=== PATIENT | female | born 1995 | race Asian ===

== ENCOUNTER 2023-07-09 23:21 | Emergency (ER) | payer BC, OTHER, SELFPAY ==
[2023-07-09 23:29] VITALS: BP 154/112
[2023-07-09 23:41] VITALS: BP 160/93
[2023-07-09] MEDS: DUONEB 3 ML INH (23:41)
[2023-07-09 23:49] VITALS: BMI 28.6
--- NOTE | 2023-07-09 23:59 | ED.GENMED ---
History of Present Illness
<ANTHONY Arevalo - Last Filed: 07/10/23 00:08>
General
Chief Complaint: Breathing Problem
Source: patient and significant other
Exam Limitations: none
Time Seen by Provider: 07/09/23 23:49
Nursing documentation reviewed up to this point in time: agreed with
Travel History
Have you had any contact with someone who has COVID-19?: No
Do you have any symptoms of coronavirus? Fever > 100 degrees, chills, cough, shortness of breath, sore throat, loss of taste or smell, muscle aches, or headache?: No
History of Present Illness
History of Present Illness:
This is a 28 year old female, with a PMH of CP, anxiety and depression, who presents to the ED with her c/o SOB x 7 hours. Pt states she was at her friend's house when her symptoms began. Her friend has 2 cats and pt normally takes a zyrtec
daily to prevent cat allergies since she has one herself, but she forgot to take it this morning. She states her SOB significantly worsened 2 hours ago where she was unable to catch her breath and speak. Pt has also had chest tightness x 2 hours
which began when her SOB worsened. Pt notes she has also had congestion, itchy eyes, cough, and wheezing. She has also felt slightly lightheaded since her symptoms began worsening this evening. She denies any BERMAN, n/v, abd pain, leg swelling.
Pt has a hx of asthma as a child but has not had any exacerbations since she was 1 years old. She does not have an inhaler.
Past History
<ANTHONY Arevalo - Last Filed: 07/10/23 00:08>
Past History
ED Past Medical History: None
ED Past Surgical History: None
Review of Systems
<ANTHONY Arevalo - Last Filed: 07/10/23 00:08>
Review of Systems
Allergies reviewed?: Yes
Other source history: family
All Other Systems: ROS reviewed and negative except as documented in HPI and ROS
Constitutional: Reports no symptoms; Denies fever
EENT: Reports runny nose and other (itchy eyes, congestion)
Respiratory: Reports cough and trouble breathing
Cardiac: Reports chest pain (chest tightness); Denies syncope
ABD/GI: Reports diarrhea (1 episode today); Denies abdominal pain, nausea or vomiting
: Reports no symptoms
Musculoskeletal: Reports no symptoms
Skin: Reports no symptoms
Neurological: Reports no symptoms; Denies dizzy or headache
Phy Exam
<ST MickeyPA - Last Filed: 07/10/23 00:08>
General Physical Exam
General Presentation: severe distress
General age: appears stated age
General Skin: warm and dry
General Habitus: normal
General Mental: alert
General Hydration: appears well hydrated
ENT Exam
ENT Exam: pharynx normal, normocephalic and swallowing well
Eye Exam
Eye Exam: PERRL and conjunctiva normal
Cardiovascular Exam
Cardiovascular Exam: regular rate/rhythm, no edema and no murmur
Heart Sounds: normal
Pulmonary Exam
Pulmonary Exam: generalized wheezing and respiratory distress
Oxygen Status: room air and other (using nebulizer)
Cough: productive cough
Respirations: rapid
Breath Sounds: Wheeze: generalized
Gastrointestinal Exam
Gastrointestinal Exam: normal bowel sounds, non tender, soft and non distended
Neurological Exam
Neurological Exam: alert and oriented x3
Musculoskeletal Exam
Musculoskeletal Exam: no edema
Skin Exam
Skin Exam: normal color and warm/dry
Psychiatric Exam
Psychiatric Exam: normal mood/affect
<Moises Knight DO - Last Filed: 07/10/23 01:37>
Physical Exam
Physical Exam:
Physical Exam
General: Tachypneic wheezing
Neck: No jaundice
Heart: s1/s2 regular rate and rhythm, no murmur. equal radial pulses.
Lungs: Diffuse
Neuro: alert and oriented. no focal neurological deficits
Skin: no rash
Psychiatric: well kept. interactive and cooperative
Extremities: no edema. no calf tenderness.
Course
<ANTHONY Arevalo - Last Filed: 07/10/23 00:08>
Orders/Labs/Results
Orders:
Orders
07/09/23 23:40
Ipratropium/Albuterol Sulfate [Duoneb] 3 ml .ROUTE .STK-MED ONE
07/09/23 23:41
Ipratropium/Albuterol Sulfate [Duoneb] 3 ml INH R NOW ONE
07/10/23 00:17
Prednisone [Deltasone] 40 mg PO NOW STA
CR Chest - 2 Views Urgent
Comment:
Reason For Exam: sob
07/10/23 00:18
Albuterol Nebs [Ventolin Nebules] 2.5 mg INH R NOW STA
Vital Signs
Initial and Last Documented VS:
Initial Vital Signs
Temp Pulse Resp BP Pulse Ox
98.6 F 109 28 154/112 96
07/09/23 23:29 07/09/23 23:29 07/09/23 23:29 07/09/23 23:29 07/09/23 23:29
Last Documented Vital Signs
Temp Pulse Resp BP Pulse Ox
98.6 F 109 28 154/112 98
07/09/23 23:29 07/09/23 23:29 07/09/23 23:29 07/09/23 23:29 07/09/23 23:46
<Moises Knight DO - Last Filed: 07/10/23 01:37>
Orders/Labs/Results
Orders:
Orders
07/09/23 23:40
Ipratropium/Albuterol Sulfate [Duoneb] 3 ml .ROUTE .STK-MED ONE
07/09/23 23:41
Ipratropium/Albuterol Sulfate [Duoneb] 3 ml INH R NOW ONE
07/10/23 00:17
Prednisone [Deltasone] 40 mg PO NOW STA
CR Chest - 2 Views Urgent
Comment:
Reason For Exam: sob
07/10/23 00:18
Albuterol Nebs [Ventolin Nebules] 2.5 mg INH R NOW STA
Vital Signs
Initial and Last Documented VS:
Initial Vital Signs
Temp Pulse Resp BP Pulse Ox
98.6 F 109 28 154/112 96
07/09/23 23:29 07/09/23 23:29 07/09/23 23:29 07/09/23 23:29 07/09/23 23:29
Last Documented Vital Signs
Temp Pulse Resp BP Pulse Ox
98.6 F 109 28 154/112 98
07/09/23 23:29 07/09/23 23:29 07/09/23 23:29 07/09/23 23:29 07/09/23 23:46
<Moises Knight DO - Last Filed: 07/10/23 01:37>
*Critical Care Note
Total Time (30-74mins, 75-104mins- exclusive of procedures): Not Applicable
<Moises Knight DO - Last Filed: 07/10/23 01:37>
Update Note
Update Note:
Update 1:36 AM chest x-ray noted negative to my eye patient feeling better
ED Attending Note
<ANTHONY Arevalo - Last Filed: 07/10/23 00:08>
-
Portions of this chart may have been created with voice recognition software.� Occasional wrong word or��sound alike� substitutions may have occurred due to the inherent limitations of voice recognition software.
<Moises Knight, DO - Last Filed: 07/10/23 01:37>
ED Attending Note
Patient seen and examined by attending physician: Yes
I performed the substantive portion of visit, reviewed & personally made and approve the management plan that is documented in note by myself or ROSY.: Yes
ED Attending Note:
Seen with student examined independently agree with assessment and plan 28-year-old female history of COPD, asthma exposed to some cats, also exposed to cold air comes in audibly wheezing, no fever no leg edema no chest pain feeling better after neb
but still wheezing we will repeat her nebs, check chest x-ray give steroid
Discharge Plan
Departure
Patient Disposition: Home (Routine Discharge)
Date of Disposition: 07/10/23
Time of Disposition: 01:36
Patient with high blood pressure during this ER visit?: Yes
Condition: Good
Discharge Problem:
Acute bronchitis
Instructions: Asthma, Adult (DC), Acute Bronchitis, Adult (DC)
Prescriptions:
New
albuterol sulfate [ProAir HFA] 90 mcg/actuation HFA aerosol inhaler
2 puff inhalation Q4HPRN PRN (Reason: shortness of breath) Qty: 8.5 2RF
prednisone 20 mg tablet
40 mg PO DAILY 5 Days Qty: 10 0RF
Referrals:
Nani Price PA-C [Family Provider] - Keep scheduled appt
Activity Restrictions/Additional Instructions:
Follow-up with your primary care provider as scheduled
Interventions
Interventions:
ED- Fall Risk Assessment Last Done: 07/09/23 23:46
*ED COVID-19 Vaccine History Last Done: 07/09/23 23:49
ED- Cardiac Assessment Last Done: 07/09/23 23:46
ED- Pulmonary Assessment Last Done: 07/09/23 23:46
[2023-07-10] MEDS: DELTASONE 40 MG PO (00:24)
[2023-07-10] MEDS: VENTOLIN NEBULES 2.5 MG INH (00:24)
[2023-07-10 01:00] VITALS: BP 134/84
== END 2023-07-10 02:26 | disposition home or self-care (01) ==
LOC: EMR 23:21
PROVIDERS: EMERGENCY PHYSICIAN Emergency Medicine; FAMILY PHYSICIAN Physician Assistant Medical
DX: J20.9 Acute bronchitis, unspecified (principal); R42 Dizziness and giddiness; R03.0 Elevated blood-pressure reading, without diagnosis of hypertension; J44.0 Chronic obstructive pulmonary disease with (acute) lower respiratory infection; F41.9 Anxiety disorder, unspecified; F32.A Depression, unspecified
CPT/HCPCS: 99284; 94640 ×2; 71046

== ENCOUNTER → 2023-08-19 10:10 | Outpatient (REF) | payer BC, OTHER, SELFPAY | LOC: HWRAD 10:10 | PROVIDERS: ATTENDING PHYSICIAN Physician Assistant Medical | DX: E04.1 Nontoxic single thyroid nodule (principal) | CPT/HCPCS: 76536 ==